=== PATIENT | male | born 1990 | race Caucasian/White ===

== ENCOUNTER 2016-09-29 15:17 | Emergency (ER) | payer SELFPAY ==
[2016-09-29 15:42] VITALS: BP 120/72; PULSE 60; TEMP 98; BMI 26.4
[2016-09-29] MEDS ORDERED: IBUPROFEN 600 MG TABLET (FP) PO ONE ×2 (16:48→16:51)
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
[2016-09-29] MEDS ORDERED: CEPHALEXIN MONOHYDRATE 500 MG CAPSULE (UD) PO ONE (18:30)
[2016-09-29] MEDS ORDERED: CEPHALEXIN MONOHYDRATE 500 MG CAPSULE (UD) ONE (18:34)
== END 2016-09-29 18:50 | disposition home or self-care (01) ==
LOC: JERFT 15:17
PROC: 0HQFXZZ Repair Right Hand Skin, External Approach (ICD-10-PCS; principal; 2016-09-29)
DX: S60.511A Abrasion of right hand, initial encounter (principal); S61.216A Laceration without foreign body of right little finger without damage to nail, initial encounter; V18.0XXA Pedal cycle driver injured in noncollision transport accident in nontraffic accident, initial encounter; Y92.410 Unspecified street and highway as the place of occurrence of the external cause; Y93.55 Activity, bike riding; Y99.8 Other external cause status
CPT/HCPCS: 73110-TC-RT; 73130-TC-RT; 73562-TC-RT; 99282-25

== ENCOUNTER 2016-10-08 20:44 | Emergency (ER) | payer SELFPAY ==
[2016-10-08 20:48] VITALS: BP 111/67; PULSE 66; TEMP 98.6; BMI 26.6
--- NOTE | 2016-10-08 22:26 | PDOC ---
Suture Removal/Wound Check HPI - History of Present Illness Chief Complaint: Suture/Staple Removal(Here) Stated Complaint: STITCHES REMOVAL Time Seen by Provider: 10/08/16 22:09 History Source: Yes: Patient Exam Limitations: Yes: No Limitations Treated at: [facility] Date of Last ED visit: 09/29/16 - Previous ED Treatment Type of procedure performed on last visit: Yes: Laceration Repair (right finger 5th digit) Tetanus Immunization: Yes: Up to Date Past History - Past Medical History Allergies/Adverse Reactions: Allergies No Known Allergies Allergy (Verified 10/08/16 20:45) Home Medications: Ambulatory Orders NK [No Known Home Medication] 10/08/16 General: Yes: no pertinent history - Immunization History Immunizations Up to Date: Yes - Social History Smoking Status: Current some day smoker Number of Ciarettes Per Day: 5 Suture Removal/Wound Check PE - Physical Exam Laceration/Wound Check Symptoms: reports: None Current Severity Level: None Location of Laceration/Wound: right: Finger (5th digit with healed laceration sutures intact ) Procedures - Additional Procedures Progress: 10/08/16 22:26 sutures removed 10 simple interrupted from the 5th digit volar side. nv intact FROM of the digit no deficit neg numbness or tingling, 5/5 strength Medical Decision Making - Medical Decision Making 10/08/16 22:27 cc: suture removal finger placed 9 days ago intact well healed FROM *DC/Admit/Observation/Transfer Diagnosis at time of Disposition: Visit for suture removal - Discharge Dispostion Disposition: HOME Condition at time of disposition: Good - Patient Instructions Printed Discharge Instructions: DI for Suture Removal Additional Instructions: apply a lubricating hand lotion to keep skin soft such as Lubriderm (over the counter or Working Hands Cream) you may resume normal routine follow with the hand surgeon if any pain, or concerns
== END 2016-10-08 22:30 | disposition home or self-care (01) ==
LOC: JERFT 20:44
DX: Z48.02 Encounter for removal of sutures (principal)
CPT/HCPCS: 99281-25